=== PATIENT | female | born 1975 | race Caucasian/White ===

== ENCOUNTER 2020-09-28 19:35 | Emergency (ER) | payer OTHER ==
[~2020-09-28 19:35] MED LIST: DITROPAN5 MG PO
[2020-09-28 21:48] LABS: BASOPHIL 0.5 % (0-2); EOSINOPHIL 1.9 % (0-5); HCT 38.7 % (37.0-47.0); HGB 12.9 g/dl (12.5-16.0); LYMPHOCYTE 29.1 % (15-48); MCH 33.6 pg (25.0-31.0); MCHC 33.3 g/dL (32.0-36.0); MCV 100.8 fL (78.0-100.0); MPV 11.3 fL (6.0-9.5); NEUTROPHIL 58.1 % (41-80); NRBC 0; PLT 234 K/uL (150-400); RBC 3.84 M/uL (4.20-5.40); RDW 12.3 % (11.5-14.0); WBC 8.1 K/uL (4.0-10.5)
[2020-09-28 21:55] LABS: ALBUMIN 3.3 g/dL (3.4-5.0); BILIRUBIN - TOTAL 0.3 mg/dL (0.2-1.0); BUN/CREAT RATIO (CALC) 10.4 RATIO; CREATININE 0.96 mg/dL (0.51-0.95); GLOBULIN (CALCULATION) 2.6 g/dL; POTASSIUM 3.4 mmol/L (3.5-5.1); TOTAL PROTEIN 5.9 g/dL (6.4-8.2)
[2020-09-28 22:03] LABS: PRO-BNP 84 pg/mL (<125)
[2020-09-28 22:27] LABS: BILIRUBIN NEGATIVE (NEGATIVE); BLOOD NEGATIVE Ery/uL (NEGATIVE); CLARITY CLEAR (CLEAR); COLOR YELLOW (YELLOW); GLUCOSE (U) NORMAL (NORMAL); LEUKOCYTES NEGATIVE Leu/uL (NEGATIVE); NITRITE NEGATIVE (NEGATIVE); PROTEIN NEGATIVE (NEGATIVE); UROBILINOGEN 0.2 mg/dL (0.2-1.0)
== END 2020-09-28 23:30 | disposition home or self-care (01) ==
LOC: FER 19:35
PROVIDERS: Emergency Medicine
DX: R60.0 Localized edema (principal); R07.9 Chest pain, unspecified; R42 Dizziness and giddiness; F17.210 Nicotine dependence, cigarettes, uncomplicated
CPT/HCPCS: 36415; 71045; 80053; 81003; 83880; 84484; 85025; 93005

== ENCOUNTER 2020-12-27 17:17 | Emergency (ER) | payer OTHER ==
[2020-12-27 19:33] LABS: BASOPHIL 0.5 % (0-2); BILIRUBIN NEGATIVE (NEGATIVE); BLOOD NEGATIVE Ery/uL (NEGATIVE); CLARITY CLEAR (CLEAR); COLOR YELLOW (YELLOW); EOSINOPHIL 1.5 % (0-5); GLUCOSE (U) NORMAL (NORMAL); HCT 38.2 % (37.0-47.0); HGB 12.9 g/dl (12.5-16.0); LEUKOCYTES NEGATIVE Leu/uL (NEGATIVE); LYMPHOCYTE 14.3 % (15-48); MCH 33.8 pg (25.0-31.0); MCHC 33.8 g/dL (32.0-36.0); MONOCYTE 8.8 % (0-12); NEUTROPHIL 74.6 % (41-80); NITRITE NEGATIVE (NEGATIVE); NRBC 0; PLT 242 K/uL (150-400); PROTEIN NEGATIVE (NEGATIVE); RBC 3.82 M/uL (4.20-5.40); RDW 12.3 % (11.5-14.0); SPECIFIC GRAVITY >=1.030 (1.001-1.030); WBC 11.9 K/uL (4.0-10.5)
[2020-12-27 19:45] LABS: BACTERIA TRACE; SQUAMOUS EPITHELIAL CELLS RARE
[2020-12-27 19:46] LABS: URINARY WBC RARE
[2020-12-27 20:01] LABS: LACTIC ACID 0.4 mmol/L (0.4-1.9)
[2020-12-27 20:06] LABS: ALBUMIN 3.3 g/dL (3.4-5.0); BILIRUBIN - TOTAL 0.3 mg/dL (0.2-1.0); BUN/CREAT RATIO (CALC) 14.9 RATIO; CREATININE 0.87 mg/dL (0.51-0.95); GLOBULIN (CALCULATION) 2.7 g/dL; POTASSIUM 3.9 mmol/L (3.5-5.1)
[2020-12-27] MEDS ORDERED: MOTRIN600 MG PO (23:10)
== END 2020-12-28 00:04 | disposition home or self-care (01) ==
LOC: FER 17:17
PROVIDERS: Physician Assistant
DX: R10.2 Pelvic and perineal pain (principal); F17.210 Nicotine dependence, cigarettes, uncomplicated
CPT/HCPCS: 36415; 76856; 80053; 81001; 83605; 85025; J2270; J2405; J7030; Q9967

== ENCOUNTER 2021-01-10 23:31 | Emergency (ER) | payer OTHER ==
[~2021-01-10 23:31] MED LIST changes: +MOTRIN600 MG PO
[2021-01-11 00:04] LABS: EOSINOPHIL 1.8 % (0-5); HCT 40.4 % (37.0-47.0); HGB 13.2 g/dl (12.5-16.0); LYMPHOCYTE 25.6 % (15-48); MCHC 32.7 g/dL (32.0-36.0); MONOCYTE 9.7 % (0-12); MPV 10.5 fL (6.0-9.5); NRBC 0; PLT 267 K/uL (150-400); RDW 12.7 % (11.5-14.0); WBC 8.2 K/uL (4.0-10.5)
[2021-01-11 00:09] LABS: INR 1.05 (0.9-1.2); PROTHROMBIN TIME 13.1 SECONDS (11.8-13.4); PTT 32.3 SECONDS (24.4-34.7)
[2021-01-11 00:15] LABS: ALBUMIN 3.7 g/dL (3.4-5.0); BILIRUBIN - TOTAL 0.2 mg/dL (0.2-1.0); BUN/CREAT RATIO (CALC) 17.4 RATIO; CREATININE 0.86 mg/dL (0.51-0.95); GLOBULIN (CALCULATION) 2.8 g/dL; POTASSIUM 3.6 mmol/L (3.5-5.1); TOTAL PROTEIN 6.5 g/dL (6.4-8.2)
[2021-01-11] MEDS ORDERED: CYCLOBENZAPRINE10 MG PO (01:50)
[2021-01-11] MEDS ORDERED: MELOXICAM15 MG PO (01:50)
== END 2021-01-11 01:55 | disposition home or self-care (01) ==
LOC: FER 23:31
PROVIDERS: Internal Medicine
DX: R07.89 Other chest pain (principal); F17.210 Nicotine dependence, cigarettes, uncomplicated
CPT/HCPCS: 36415; 71045; 80053; 84484; 85025; 85610; 85730; 93005; J1885

== ENCOUNTER → 2021-05-07 | Day surgery (SDC) | payer OTHER ==
[~2021-05-07] VITALS: Ht 167.6 cm; Wt 68.0 kg
[~2021-05-07] MED LIST changes: +ALL DAY ALLERGY10 M2 PO; +ASCORBIC ACID500 MG PO; +COLACE100 MG PO; +CYCLOBENZAPRINE10 MG PO; +HAIR SKIN NAIL1 EACH PO; +KETOROLAC TROME10 MG PO; +MELOXICAM15 MG PO; +MULTI FOR HER1 EACH PO; +VITAMIN B-121000 MC1 PO; +VITAMIN D3125 MC1 PO; +VITAMIN E1000 UNI1 PO
== END | disposition home or self-care (01) ==
LOC: FAS 11:18
DX: Z12.11 Encounter for screening for malignant neoplasm of colon (principal); D12.5 Benign neoplasm of sigmoid colon; F32.A Depression, unspecified; I47.1 Supraventricular tachycardia; Z87.891 Personal history of nicotine dependence
CPT/HCPCS: J2704; J7120

== ENCOUNTER 2021-06-23 17:40 | Emergency (ER) | payer OTHER ==
[2021-06-23 18:40] LABS: BILIRUBIN NEGATIVE (NEGATIVE); BLOOD 3+ Ery/uL (NEGATIVE); CLARITY CLEAR (CLEAR); COLOR YELLOW (YELLOW); GLUCOSE (U) NORMAL (NORMAL); LEUKOCYTES 1+ Leu/uL (NEGATIVE); NITRITE NEGATIVE (NEGATIVE); PROTEIN 2+ mg/dL (NEGATIVE); SPECIFIC GRAVITY 1.015 (1.001-1.030); UROBILINOGEN 0.2 mg/dL (0.2-1.0); pH 7.5 (5.0-9.0)
[2021-06-23 18:46] LABS: BACTERIA 1+; SQUAMOUS EPITHELIAL CELLS RARE; URINARY WBC TNTC
[2021-06-23] MEDS ORDERED: PYRIDIUM200 M1 PO (19:05)
[2021-06-23] MEDS ORDERED: MACROBID100 MG PO (19:05)
== END 2021-06-23 19:25 | disposition home or self-care (01) ==
LOC: FER 17:40
PROVIDERS: Emergency Medicine
DX: N30.01 Acute cystitis with hematuria (principal); Z87.891 Personal history of nicotine dependence
CPT/HCPCS: 81001; 99283